=== PATIENT | male | born 1960 | race Caucasian/White ===

== ENCOUNTER → 2017-04-24 | Outpatient (CLI) | payer OTHER ==
[~2017-04-24] MED LIST: AMARYL2 MG PO; AMARYL4 MG PO; ASA5UEC PO; ATORVASTATIN CA40 MG PO; COZAAR 50 MG TA50 M2 PO; FLOMAX0.4 MG PO; HYDROCODON-ACE1 EAC7 PO; LOPRESSOR50 PO; PRENATAL PO; VITAMIN B-1100 M2 PO
== END ==
LOC: RAD 14:15
DX: I25.10 Atherosclerotic heart disease of native coronary artery without angina pectoris (principal); J98.11 Atelectasis; Z95.1 Presence of aortocoronary bypass graft

== ENCOUNTER → 2021-04-28 | Outpatient (CLI) | payer OTHER | LOC: SJCVCIMAG 04-14 11:05 | PROVIDERS: ATTEND Internal Medicine | DX: I63.9 Cerebral infarction, unspecified (principal) ==